=== PATIENT | female | born 1950 | race Caucasian/White ===

== ENCOUNTER 2021-03-30 09:20 | Emergency (ER) | payer MEDICARE, SELFPAY ==
--- NOTE | 2021-03-30 09:54 | EKG12_ITS ---
Test Reason : WEAKNESS Blood Pressure : / mmHG Vent. Rate : 070 BPM Atrial Rate : 070 BPM P-R Int : 176 ms QRS Dur : 104 ms QT Int : 400 ms P-R-T Axes : 000 121 039 degrees QTc Int : 432 ms Sinus rhythm with Premature atrial complexes Otherwise normal ECG Confirmed by VIKKI FENTON, GIOVANY ([id number]), television news video editor LORA BOYD ([id number]) on 04/01/2021 10:17:46 AM Referred By: PIPPA Confirmed By:GIOVANY FLOREZ MD
--- NOTE | 2021-03-30 10:10 | CT_ITS ---
HISTORY: Weakness and slurred speech. TECHNIQUE: Multiple axial images were obtained of the brain without intravenous contrast. A radiation dose optimization technique was used for this scan. # of images incl. paperwork: 233. COMPARISON: None. FINDINGS: BRAIN PARENCHYMA:Multiple small foci and zones of low attenuation in the cerebral white matter most compatible with chronic small vessel ischemic gliosis. Mild calcification of the right basal ganglia. INTRACRANIAL HEMORRHAGE: No acute intracranial hemorrhage. CSF SPACES/MASS EFFECT: Diffuse atrophy with compensatory ventricular enlargement. No midline shift or other significant mass effect. ORBITS: Bilateral lens resection. CALVARIUM: Intact. PARANASAL SINUSES AND MASTOID AIR CELLS: Minimal ethmoid air cell mucosal thickening. ASPECTS Score for Acute Strokes: 10. CT/Brain/Head without Contrast IMPRESSION: No acute intracranial process identified. Chronic small vessel ischemic gliosis. Individualized dose optimization techniques were used for this CT. at 1029 Reported and signed by: Tracie Gerber MD Electronically Signed: Tracie Gerber MD at 10:28 EST ,
--- NOTE | 2021-03-30 10:15 | RAD_ITS ---
STUDY: X-RAY CHEST REASON FOR EXAM: Female, 70 years old. INCREASED WEAKNESS, ? STROKE TECHNIQUE: Single frontal view of the chest COMPARISON: None. FINDINGS: The lungs are clear and expanded. There is no demonstrated pleural abnormality. Normal size heart. Normal mediastinum and jay. Normal visualized pulmonary arteries. Normal visualized aortic arch and descending thoracic aorta. Normal visualized thoracic spine. Normal visualized ribs, clavicles, and shoulders. There is no demonstrated abnormality of the visualized soft tissue structures of the upper abdomen. RAD/Chest 1 View IMPRESSION: Normal x-ray examination of the chest. Electronically Signed: Yohan Gray MD at 10:58 EST ,
--- NOTE | 2021-03-30 12:15 | CT_ITS ---
HISTORY: CVA. TECHNIQUE: Routine [place]/brain and carotid CT angiogram protocol was performed with IV contrast. Nascet criteria using the distal ICAs for comparison were used for evaluation of stenoses. 2D/3D reconstructions were reviewed. A radiation dose optimization technique was used for this scan. IV Contrast dosage and agent: 100 mL [id number] IV. Number of images including paperwork: 2019. COMPARISON: CT head same day. FINDINGS: CTA head- ICAs: No significant stenosis at the intracranial/visualized segments. ACAs: No significant stenosis at the visualized segments. MCAs: No significant stenosis at the visualized segments. [employer]: No significant stenosis at the visualized segments. BASILAR ARTERY: No significant stenosis. VERTEBRAL ARTERIES: No significant stenosis at the intradural/visualized segments. No evidence of intracranial aneurysm or vascular malformation. CTA neck- RIGHT CCA: No occlusion, significant stenosis or dissection. RIGHT ICA: Tortuous distally with a medial retropharyngeal course. No occlusion or significant stenosis. LEFT CCA: No occlusion, significant stenosis or dissection. LEFT ICA: Minimal calcified plaque at the origin. Medial retropharyngeal course. No occlusion, significant stenosis or dissection. RIGHT VERTEBRAL ARTERY: Patent. LEFT VERTEBRAL ARTERY: Calcified plaque at its origin directly off the arch. Mild tortuosity and narrowing distally. No occlusion, significant stenosis or dissection. AORTIC ARCH AND BRANCHES: Mild atherosclerosis. CT/CTA Head AND Neck W/ Contrast IMPRESSION: No evidence for focal vascular abnormality in the [place] region. No evidence for significant stenosis in the carotid or vertebral arteries of the neck. Individualized dose optimization techniques were used for this CT. at 1323 Reported and signed by: Tracie Gerber MD Electronically Signed: Tracie Gerber MD at 13:22 EST ,
--- NOTE | 2021-03-30 13:43 | EDS_ITS ---
DATE OF SERVICE 03/30/21 CHIEF COMPLAINT: Stroke symptoms. HISTORY OF PRESENT ILLNESS: This is a 70-year-old female who is brought in by EMS. She reports falling when she got out of bed at 7 a.m. this morning. She then fell when walking to the bathroom. She scooted around on the floor. She spoke to her daughter on the phone who felt that her speech was slurred and EMS was called. Daughter did not see her. The patient was not wearing her bottom dentures at the time. The patient does have a prior history of TIA, but no longstanding deficits per her report. She also has a history of atrial fibrillation and flutter but is not on anticoagulant. PHYSICAL EXAMINATION: GENERAL: The patient is sitting upright in bed in no acute distress. She is alert and conversant. Head and neck examination is unremarkable. VITAL SIGNS: Blood pressure 146/92, heart rate 78, respiratory rate 18, pulse ox 97% on room air. LUNGS: Lung sounds are clear. HEART: Regular rate and rhythm. ABDOMEN: Soft and nontender. NEUROLOGIC: The patient is alert and oriented x3. Cranial nerves II-XII are intact. NIH score is 0 on my initial evaluation. DIAGNOSTIC DATA: EKG is sinus at 70 with no acute ischemia. Chest x-ray shows chronic changes only. Head CT shows no acute process with chronic small vessel ischemic changes. CTA of the head and neck shows no stenosis. CBC: Chemistry studies are unremarkable. Urinalysis shows 0-5 WBC with 1+ bacteria but no nitrites. Troponin is normal at 14. EMERGENCY DEPARTMENT COURSE AND MEDICAL DECISION MAKING: Throughout her ED stay, her NIH has remained 0. Daughter is now at bedside. The patient is at baseline. They are comfortable with discharge to home and close followup. IMPRESSION: Reported slurred speech. DISPOSITION/PLAN: Discharged.
[2021-03-30 19:59] LABS: Mucous, Urine 0 SEEN /hpf (<or=2+); Red Blood Cells-Urine 0 SEEN /hpf (0-5)
[2021-03-30 21:28] LABS: Absolute Lymphocyte Count 0.92 X10^3/uL (0.83-4.51); Absolute Neutrophil Count 4.7 X10^3/uL (2.0-7.7); Basophil# 0.03 X10^3/uL; Basophil% 0.5 % (0-1); Eosinophil# 0.07 X10^3/uL; Eosinophils% 1.1 % (0-5); Hematocrit 49.2 % (37-47); Hemoglobin 15.7 g/dL (12.0-15.0); Lymphocyte # 0.92 X10^3/ul (0.83-4.51); Lymphocyte % 14.4 % (19-41); Mean Corp Hgb Conc 31.9 g/dL (32-36); Mean Corpuscular Hgb 28.1 pg (27.0-32.0); Mean Corpuscular Volume 88.2 fL (81-99); Mean Platelet Vol. 9.7 fl (6.2-12.0); Monocyte# 0.66 X10^3/uL; Monocyte% 10.3 % (0-10); NRBC Flagged by Analyzer 0 % (0-5); Neutrophil # 4.69 X10^3/uL (2.7-7.7); Neutrophil % 73.4 % (47-70); Platelet Count 288 K/mm3 (150-450); RBC Distribution Width CV 12.5 % (11.6-14.6); RBC Distribution Width SD 40.8 fl (35.1-43.9); Red Blood Count 5.58 M/mm3 (4.2-5.4); White Blood Count 6.4 K/mm3 (4.4-11.0)
[2021-03-31 01:04] LABS: Anion Gap 4 (5-15); BUN 16 mg/dL (7-18); BUN/Creat Ratio 20.9 RATIO (10-20); Calcium,Total 9.1 mg/dL (8.5-10.1); Chloride 105 mmol/L (98-107); Creatinine, Serum 0.77 mg/dL (0.55-1.02); EST Glomerular Filtration Rate 79 mL/min (>60); Est Glom Filt Rate - Afr Amer 95 mL/min (>60); Glucose 115 mg/dL (74-106); Potassium 4.4 mmol/L (3.5-5.1); Sodium Level 138 mmol/L (136-145); Troponin-I HS 14 pg/mL (3.0-54.0)
[2021-03-31 09:07] LABS: Color, Urine Yellow (Yellow); Glucose, Dipstick NEGATIVE (Normal); Ketone-Dipstick 5 mg/dl (Negative); Specific Gravity, Urine 1.025 (1.002-1.030); Urine Bilirubin Dipstick 1 mg/dL (Negative); Urine Clarity Clear (Clear)
[2021-03-31 09:08] LABS: Bacteria 1+ /hpf (None Seen); Leukocyte Esterase-Dipstick 100 /ul (Negative); Nitrite-Dipstick Negative (Negative); Occult Blood-Urine 10 /ul (Negative); Protein-Dipstick 30 mg/dl (Negative); Squamous Epithelial Cells - UA 0-5 SEEN /hpf (5-10); Urine Urobilinogen 1 mg/dl (Normal); White Blood Cells 0-5 SEEN /hpf (0-5)
== END 2021-03-30 14:06 | disposition home or self-care (01) ==
LOC: ED 04-01 13:52
PROVIDERS: Emergency Provider Emergency Medicine; PCP Family Medicine; Visit Provider Emergency Medicine
DX: R47.81 Slurred speech (principal); I48.91 Unspecified atrial fibrillation; R29.6 Repeated falls; Z86.73 Personal history of transient ischemic attack (TIA), and cerebral infarction without residual deficits
CPT/HCPCS: 70450; 70496; 70498; 71045; 80048; 81001; 84484; 85025; 93005; 99285; Q9967